=== PATIENT | female | born 1955 | race Caucasian/White ===

== ENCOUNTER → 2016-03-18 | Outpatient (CLI) | payer BC | LOC: MC.RAD 07:53 | DX: Z12.31 Encounter for screening mammogram for malignant neoplasm of breast (principal) ==

== ENCOUNTER → 2017-03-28 | Outpatient (CLI) | payer BC | LOC: MC.RAD 07:38 | DX: Z12.31 Encounter for screening mammogram for malignant neoplasm of breast (principal) ==

== ENCOUNTER → 2018-03-30 | Outpatient (CLI) | payer BC | LOC: MC.RAD 07:27 | DX: Z12.31 Encounter for screening mammogram for malignant neoplasm of breast (principal) ==

== ENCOUNTER 2018-05-04 11:07 | Emergency (ER) | payer BC ==
[~2018-05-04] VITALS: Ht 162.6 cm; Wt 61.8 kg
[2018-05-04 11:21] VITALS: TEMP 99
[2018-05-04] MEDS ORDERED: ASACOL HD800 MG PO ×2 (11:32)
[2018-05-04] MEDS ORDERED: LEVOXYL0.075 MG PO (11:32)
[2018-05-04 12:11] LABS: HEMOGLOBIN 15.6 g/dl (12.5-16.0); MEAN CELL VOLUME 98 fl (80.0-100.0); MEAN CORPUSCULAR HEMOGLOBIN 33 pg (27.0-31.0); MEAN CORPUSCULAR HGB CONC 34 g/dl (33.0-37.0); MEAN PLATELET VOLUME 10.3 fl (7.4-10.4); PLATELET COUNT 293 K/mm3 (130-400); RED BLOOD COUNT 4.71 M/mm3 (4.10-5.30); REDCELL DISTRIBUTION WIDTH-CV 13.3 % (11.5-14.5)
[2018-05-04 12:21] LABS: ALBUMIN 3.6 gm/dL (3.5-5.0); BILIRUBIN,TOTAL 0.4 mg/dL (0.0-1.0); C-REACTIVE PROTEIN 1.2 mg/dL (0.0-0.9); CALCIUM 8.8 mg/dL (8.4-10.2); CREATININE, serum 1.14 mg/dL (0.52-1.25); POTASSIUM 3.8 mmol/L (3.4-5.0); TOTAL PROTEIN 6.9 gm/dL (6.4-8.2)
[2018-05-04 12:52] LABS: ERYTHROCYTE SEDIMENTATION RATE 4 mm/hr (0-30)
[2018-05-04] MEDS ORDERED: LOMOTIL 0.025 M1 TAB PO (12:58)
[2018-05-04] MEDS ORDERED: ZOFRAN 4MG T4 MG/TAB PO (12:58)
[2018-05-04 13:04] LABS: BAND 20 % (0-10); LYMPHOCYTE 9 % (20.0-51.0); NEUTROPHILS 55 % (42.0-75.2); PLATELET ESTIMATE NORMAL (NORMAL)
[2018-05-04] MEDS ORDERED: EPA FISH OIL1 SGL PO (13:39)
[2018-05-04] MEDS ORDERED: CENTRUM SILVER1 CTB PO (13:39)
[2018-05-04] MEDS ORDERED: PRAVACHOL 20MG20 MG PO (13:39)
[2018-05-04] MEDS ORDERED: CITRACAL + D CA1 TAB (13:40)
[2018-05-04 14:00] VITALS: BP 138/73; PULSE 65
== END 2018-05-04 14:02 | disposition home or self-care (01) ==
LOC: COL.ER 11:07
PROVIDERS: Emergency Medicine
DX: R19.7 Diarrhea, unspecified (principal); E86.0 Dehydration
CPT/HCPCS: J1170; J2405; J7030

== ENCOUNTER 2018-05-13 10:51 | Emergency (ER) | payer BC ==
[~2018-05-13] VITALS: Ht 162.6 cm; Wt 56.8 kg
[~2018-05-13 10:51] MED LIST: ASACOL HD800 MG PO; CENTRUM SILVER1 CTB PO; CITRACAL + D CA1 TAB; EPA FISH OIL1 SGL PO; LEVOXYL0.075 MG PO; LOMOTIL 0.025 M1 TAB PO; PRAVACHOL 20MG20 MG PO; ZOFRAN 4MG T4 MG/TAB PO
[2018-05-13 10:58] VITALS: TEMP 98
[2018-05-13 11:44] LABS: BASO # 0.1 (0.0-0.2); BASO % 0.8 % (0.0-2.0); EOS % 0.2 % (0-4.0); GRAN # 12.1 (1.4-6.5); GRAN % 84.2 % (42.2-75.2); HEMATOCRIT 45.9 % (37.0-47.0); HEMOGLOBIN 15.4 g/dl (12.5-16.0); LYMPH # 1.3 (1.2-3.4); LYMPH % 8.9 % (20.0-51.0); MEAN CELL VOLUME 100 fl (80.0-100.0); MEAN CORPUSCULAR HEMOGLOBIN 34 pg (27.0-31.0); MEAN CORPUSCULAR HGB CONC 34 g/dl (33.0-37.0); MEAN PLATELET VOLUME 9.2 fl (7.4-10.4); MONO # 0.8 (0.1-0.6); MONO % 5.3 % (1.7-9.3); PLATELET COUNT 445 K/mm3 (130-400); RED BLOOD COUNT 4.59 M/mm3 (4.10-5.30); REDCELL DISTRIBUTION WIDTH-CV 13.4 % (11.5-14.5)
[2018-05-13 13:12] LABS: ALANINE AMINOTRANSFERASE 100 U/L (9-52); ALBUMIN 3.7 gm/dL (3.5-5.0); ALKALINE PHOSPHATASE 69 U/L (50-136); ANION GAP 9 mmol/L (7-16); AST,SGOT 57 U/L (15-37); BILIRUBIN,TOTAL 1.3 mg/dL (0.0-1.0); BLOOD UREA NITROGEN 26 mg/dL (7-17); CALCIUM 9.4 mg/dL (8.4-10.2); CARBON DIOXIDE 25 mmol/L (22-30); CHLORIDE 104 mmol/L (98-107); CREATININE, serum 0.96 mg/dL (0.52-1.25); GLUCOSE 93 mg/dL (74-106); POTASSIUM 3.8 mmol/L (3.4-5.0); SODIUM 138 mmol/L (137-145); TOTAL PROTEIN 6.9 gm/dL (6.4-8.2)
[2018-05-13 13:13] LABS: C-REACTIVE PROTEIN < 0.5 mg/dL (0.0-0.9)
[2018-05-13 13:18] LABS: COLLECTION METHOD CLEAN CATCH
[2018-05-13 13:36] LABS: AMORPHOUS CRYSTAL Present /uL; MUCOUS Present /lpf; PH 5 (5-8); SQUAMOUS EPITHELIAL 0-2 /hpf; URINE APPEARANCE Cloudy; URINE BACTERIA None Seen /hpf; URINE BILIRUBIN Negative (NEGATIVE); URINE BLOOD Negative (NEGATIVE); URINE COLOR Amber; URINE GLUCOSE Negative (NEGATIVE); URINE KETONE Negative (NEGATIVE); URINE LEUKOCYTE ESTERASE Negative (NEGATIVE); URINE NITRATE Negative (NEGATIVE); URINE PROTEIN(semi-quant) 1+ (NEGATIVE); URINE UROBILINOGEN Negative (NEGATIVE)
[2018-05-13 15:39] VITALS: BP 133/61; PULSE 82
== END 2018-05-13 15:43 | disposition home or self-care (01) ==
LOC: COL.ER 10:51
PROVIDERS: Nurse Practitioner
DX: K51.90 Ulcerative colitis, unspecified, without complications (principal)
CPT/HCPCS: J2405; J7030

== ENCOUNTER 2018-05-18 10:40 | Inpatient (IN) | payer BC ==
[~2018-05-18] VITALS: Ht 165.1 cm; Wt 58.1 kg
--- NOTE | 2018-05-18 11:34 | NUR ---
Patient arrived to room, dressed in gown over clothes, stating she was chilly. Did offer blanket and declined. Feels comfortable sitting up on couch. Denies pain, just has an undescriblable feeling in her abdomen. States has had diarrhea and has just returned from the restroom. No bloody stools noted since symptoms initially started approximately 3 weeks ago. Denies abdominal pain to touch. is at bedside, call light is within reach.
[2018-05-18] MEDS ORDERED: MASON NATURAL2000 IU PO (11:55)
[2018-05-18] MEDS ORDERED: PREDNISONE10 MG PO (11:57)
[2018-05-18 12:19] VITALS: BP 114/64; PULSE 72; TEMP 98.2
[2018-05-18 13:19] LABS: HEMATOCRIT 41.2 % (37.0-47.0); HEMOGLOBIN 13.6 g/dl (12.5-16.0); MEAN CELL VOLUME 99 fl (80.0-100.0); MEAN CORPUSCULAR HEMOGLOBIN 33 pg (27.0-31.0); MEAN CORPUSCULAR HGB CONC 33 g/dl (33.0-37.0); PLATELET COUNT 343 K/mm3 (130-400); RED BLOOD COUNT 4.16 M/mm3 (4.10-5.30); REDCELL DISTRIBUTION WIDTH-CV 13.5 % (11.5-14.5)
[2018-05-18 13:29] LABS: ALBUMIN 3.4 gm/dL (3.5-5.0); BILIRUBIN,TOTAL 0.9 mg/dL (0.0-1.0); CALCIUM 8.7 mg/dL (8.4-10.2); CREATININE, serum 0.99 mg/dL (0.52-1.25); POTASSIUM 3.9 mmol/L (3.4-5.0); TOTAL PROTEIN 6.1 gm/dL (6.4-8.2)
[2018-05-18 13:51] LABS: ERYTHROCYTE SEDIMENTATION RATE 1 mm/hr (0-30)
[2018-05-18 13:55] LABS: BAND 19 % (0-10); LYMPHOCYTE 2 % (20.0-51.0); NEUTROPHILS 79 % (42.0-75.2); PLATELET ESTIMATE NORMAL (NORMAL); TOXIC GRANULATION PRESENT
[2018-05-18 15:28] VITALS: BP 118/64; PULSE 77; TEMP 98.4
--- NOTE | 2018-05-18 18:11 | NUR ---
Patient is resting in bed, is at bedside. Denies pain but states she definitely does not feel the best. Did ask for ice chips, provided to patient. No other needs verbalized, call light is within reach.
[2018-05-18 20:38] VITALS: BP 102/60; PULSE 72; TEMP 98.4
[2018-05-18 21:21] LABS: COLLECTION METHOD CLEAN CATCH
[2018-05-18 21:29] LABS: AMORPHOUS CRYSTAL Present /uL; MUCOUS Present /lpf; PH 5 (5-8); SQUAMOUS EPITHELIAL None Seen /hpf; URINE APPEARANCE Turbid; URINE BACTERIA Rare /hpf; URINE BILIRUBIN Negative (NEGATIVE); URINE BLOOD Negative (NEGATIVE); URINE COLOR Yellow; URINE GLUCOSE Negative (NEGATIVE); URINE KETONE 1+ (NEGATIVE); URINE LEUKOCYTE ESTERASE Negative (NEGATIVE); URINE NITRATE Negative (NEGATIVE); URINE PROTEIN(semi-quant) Negative (NEGATIVE); URINE RBC 0-2 /hpf; URINE UROBILINOGEN Negative (NEGATIVE)
[2018-05-18 23:35] VITALS: BP 111/60; PULSE 63; TEMP 98.8
[2018-05-19 03:45] VITALS: BP 98/58; PULSE 63; TEMP 98.5
--- NOTE | 2018-05-19 04:16 | NUR ---
PT HAD UNEVENTFUL NOC. PT REMAINS HAVING C/O GI UPSET AND LOOSE STOOLS. SCHEDULED MEDS GIVEN, NO NEED FOR PRN MEDS VOICED OVER NIGHT. PT DID INQUIRE ABOUT 6-MP MED, NOTIFIED PT THAT AT THIS TIME IT HASNT BEEN STARTED. NO OTHER QUESTIONS OR CONSERNS VOICED OVERNIGHT.
[2018-05-19 07:57] LABS: CALCIUM 7.4 mg/dL (8.4-10.2); CREATININE, serum 0.73 mg/dL (0.52-1.25); MAGNESIUM 2.1 mg/dL (1.6-2.3)
--- NOTE | 2018-05-19 08:30 | NUR ---
Checked in on patient, she is observed up in room, coming out of restroom. States she is feeling some improvement and would like to try a clear liquid diet. Did offer jello and tolerated it well. Received order for clear liquid diet and tray ordered for patient. Call light is within reach.
--- NOTE | 2018-05-19 11:09 | NUR ---
First visit from the health service worker. No needs right now.
--- NOTE | 2018-05-19 13:26 | NUR ---
MAGDY met with the patient to discuss discharge plan. The patient lives in [place] with her , Waylon. She reports independence with ADLs and dose not use any DME. The patient's PCP is Dr. Aubrey Vazquez and she states that after he retires at the end of this month, she will be switching to Dr. Villanueva. She receives her medications at the [facility] and she reports no difficulties obtaining her meds. The patient's DPOA-HC is in EMR. The patient plans to return home with her upon discharge. No additional needs at this time.
[2018-05-19 16:07] VITALS: BP 135/61; PULSE 63; TEMP 98.7
--- NOTE | 2018-05-19 17:34 | NUR ---
Patient sitting up in bed, did go for walk in hallway with . Tolerated well. Stated will maybe order something for supper but isnt sure yet. Did not have any issue with mashed potatoes at lunch. Deneis pain. Call light is within reach.
--- NOTE | 2018-05-19 19:32 | NUR ---
Patient sitting up in bed. Assessment completed, slightly rounded abdomen, reports pain of 2-3/10. Reports some mild nausea, would like zofran if possible. IV site shows no redness/edema, NS infusing at 100 mls/hr. Alert and oriented x4.
[2018-05-19 19:51] VITALS: BP 117/66; PULSE 66; TEMP 98.4
[2018-05-20] VITALS (7 sets, daily range): BP systolic 19–120; BP diastolic 57–64; PULSE 56–65; TEMP 97.9–98.9
--- NOTE | 2018-05-20 05:24 | NUR ---
Pt slept on/off last night. Reports minor pain, rating around 3. No pain medications given. Some mild nausea at beginning of shift, given zofran, nausea was relieved. NS infusing at 100 mls/hr. No further needs at this time.
[2018-05-20 06:41] LABS: ALBUMIN 2.5 gm/dL (3.5-5.0); BILIRUBIN,TOTAL 0.4 mg/dL (0.0-1.0); CALCIUM 7.5 mg/dL (8.4-10.2); CREATININE, serum 0.68 mg/dL (0.52-1.25); MAGNESIUM 2.3 mg/dL (1.6-2.3); POTASSIUM 3.9 mmol/L (3.4-5.0); TOTAL PROTEIN 4.8 gm/dL (6.4-8.2)
--- NOTE | 2018-05-20 07:16 | NUR ---
Report given to LARS Khan> Patient resting in bed. No needs at this time.
--- NOTE | 2018-05-20 09:00 | NUR ---
Pt is A+Ox3, pleasant, denies pain and SOB, denies vomiting for 2 days but asked for zofran just to avoid nausea after eating. States she still has loose stools but no blood. Abodmen is soft, nondistended, she states she feels much improved. IV free of redness, swelling. Physical assessment completed. No furtehr needs, call light in reach
--- NOTE | 2018-05-20 16:42 | NUR ---
This RN ambulated pt around third floor, she had steady gate with no SOB or dizziness, returned to bed, call jennyfer vila
--- NOTE | 2018-05-20 18:29 | NUR ---
tHROUGH SHIFT pt vitals remained stable, no nausea/vomiting, no diarrhea. Pt walked halls today, fluids infusing into IV site free of redness, swelling. Call light in reach, no furtehr needs
--- NOTE | 2018-05-20 18:39 | NUR ---
Gigi Becerril Rn
--- NOTE | 2018-05-20 19:05 | NUR ---
Patient resting in bed watching tv. Assessment completed, lungs clear, bowel sounds active, denies pain, denies nausea. Requesting enema to be given at 2200 this evening. Ambulatory, independent within the room. NS infusing at 60 mls/hr into right forearm. No needs at this time.
--- NOTE | 2018-05-20 22:13 | NUR ---
Patient received mesalamine enema, tolerated well. Now resting in bed, states she is going to try and sleep now
[2018-05-21 04:55] VITALS: BP 110/63; PULSE 55; TEMP 98
--- NOTE | 2018-05-21 05:02 | NUR ---
Patient slept for most of the shift. IVF infusing at 60 mls/hr into right forearm. No c/o pain/nausea. Independent in room. No further needs at this time.
--- NOTE | 2018-05-21 07:00 | NUR ---
Report given to LARS Orosco. Patient sitting up in bed. No needs at this time.
[2018-05-21 07:58] VITALS: BP 107/57; PULSE 66; TEMP 97.8
--- NOTE | 2018-05-21 09:42 | NUR ---
Assessment complete.patient awake,a/ox3.denies pain or discomfort at this time.LSCTA.breathing even and unlabored.denies nausea vomitting or diarrhea.IVF infusing.patient tolerating food well.denies any needs at this time.will continue to monitor.call light in reach
[2018-05-21] MEDS ORDERED: ZOFRAN ODT4 MG PO (09:47)
[2018-05-21] MEDS ORDERED: PROTONIX 40MG T40 MG PO (09:48)
[2018-05-21] MEDS ORDERED: ROWASA ENEMA60 ML RC (09:49)
[2018-05-21] MEDS ORDERED: LIALDA 1.2 GM1.2 GM PO (09:49)
[2018-05-21] MEDS ORDERED: PREDNISONE10 MG PO (09:55)
[2018-05-21] MEDS ORDERED: HUMIRA SQ (09:55)
[2018-05-21] MEDS ORDERED: PURINETHOL 50MG50 MG PO (09:58)
--- NOTE | 2018-05-21 11:18 | NUR ---
Pt resting in bed at this time.denies any needs. Discharge instructions reviewed.Humira given to pt by pharmacy to take home.education provided on med and pt voiced understanding.mesalamine enema sent home with patient.Iv discontinued.all questions answered.paperwork signed. staff to escort patient out.
== END 2018-05-21 12:02 | disposition home or self-care (01) | DRG 387 ==
LOC: MEDICAL 10:40
PROVIDERS: Physician Assistant; ADMIT Internal Medicine
DX: K51.018 Ulcerative (chronic) pancolitis with other complication (principal); E78.5 Hyperlipidemia, unspecified; E03.9 Hypothyroidism, unspecified; E80.4 Gilbert syndrome; K76.0 Fatty (change of) liver, not elsewhere classified
CPT/HCPCS: 99222-AI; 99232-AI; 99239; J1650; J2405; J2930; J7030

== ENCOUNTER → 2020-05-15 | Outpatient (CLI) | payer BC ==
[~2020-05-15] MED LIST changes: +HUMIRA SQ; +LIALDA 1.2 GM1.2 GM PO; +MASON NATURAL2000 IU PO; +PREDNISONE10 MG PO; +PROTONIX 40MG T40 MG PO; +PURINETHOL 50MG50 MG PO; +ROWASA ENEMA60 ML RC; +ZOFRAN ODT4 MG PO
== END ==
LOC: ZCOL.LAB 12:16
DX: R07.9 Chest pain, unspecified (principal)

== ENCOUNTER → 2020-10-02 | Outpatient (CLI) | payer BC | LOC: MC.RAD 08:25 | DX: Z12.31 Encounter for screening mammogram for malignant neoplasm of breast (principal) ==

== ENCOUNTER → 2021-10-11 | Outpatient (CLI) | payer BC | LOC: MC.RAD 08:25 | DX: Z12.31 Encounter for screening mammogram for malignant neoplasm of breast (principal) ==

== ENCOUNTER 2023-04-22 10:56 | Outpatient (CLI) | payer MEDICARE ==
[~2023-04-22] VITALS: Ht 162.6 cm; Wt 65.2 kg
[2023-04-22 11:29] LABS: BASO % 0.6 % (0.0-2.0); EOS # 0.2 K/mm3 (0.0-0.7); EOS % 3.2 % (0.0-4.0); GRAN # 4.4 K/mm3 (1.4-6.5); GRAN % 65.7 % (42.2-75.2); HEMATOCRIT 42.4 % (37.0-47.0); HEMOGLOBIN 13.7 g/dl (12.5-16.0); MEAN CELL VOLUME 101 fl (80.0-100.0); MEAN CORPUSCULAR HEMOGLOBIN 33 pg (27-31); MEAN CORPUSCULAR HGB CONC 32 g/dl (33.0-37.0); PLATELET COUNT 244 K/mm3 (130-400); REDCELL DISTRIBUTION WIDTH-CV 12.7 % (11.5-14.5)
[2023-04-22 11:45] LABS: ALBUMIN 3.7 gm/dL (3.4-4.8); CALCIUM 10.2 mg/dL (8.4-10.2); CREATININE, serum 0.8 mg/dL (0.57-1.11); POTASSIUM 4.1 mmol/L (3.5-4.5); TOTAL PROTEIN 7.8 gm/dL (6.2-8.1)
[2023-04-22 11:54] LABS: BILIRUBIN,TOTAL 0.6 mg/dL (0.2-1.2)
[2023-04-22] MEDS ORDERED: diphenhydrAMINE 50 MG/ML 1 ML VIAL IV ONE (12:15)
[2023-04-22] MEDS ORDERED: Acetaminophen 500 MG TAB PO ONE (12:15)
[2023-04-22] MEDS ORDERED: methylPREDNISolone Sod Succ 40 MG/ML VIAL IV ONE (12:15)
[2023-04-22 12:45] VITALS: BP 135/82; PULSE 61; TEMP 98.2
[2023-04-22] MEDS ORDERED: Vedolizumab 300 MG in NS 250 ML IV ONE (12:45)
== END 2023-04-22 16:10 ==
LOC: EUO 10:56
PROVIDERS: Internal Medicine Gastroenterology
DX: M81.0 Age-related osteoporosis without current pathological fracture (principal)
CPT/HCPCS: J3380; J7050

== ENCOUNTER 2023-05-07 09:53 | Outpatient (CLI) | payer MEDICARE ==
[~2023-05-07] VITALS: Ht 162.6 cm; Wt 65.0 kg
[2023-05-07 10:15] VITALS: BP 119/77; PULSE 66; TEMP 98.6
[2023-05-07 10:25] LABS: BASO % 0.7 % (0.0-2.0); EOS # 0.3 K/mm3 (0.0-0.7); GRAN # 3.6 K/mm3 (1.4-6.5); GRAN % 60.1 % (42.2-75.2); HEMATOCRIT 42.4 % (37.0-47.0); HEMOGLOBIN 14.5 g/dl (12.5-16.0); LYMPH % 16.9 % (20.0-51.0); MEAN CELL VOLUME 97 fl (80.0-100.0); MEAN CORPUSCULAR HEMOGLOBIN 33 pg (27-31); MEAN CORPUSCULAR HGB CONC 34 g/dl (33.0-37.0); MONO % 17.1 % (1.7-9.3); PLATELET COUNT 230 K/mm3 (130-400); RED BLOOD COUNT 4.37 M/mm3 (4.10-5.30); REDCELL DISTRIBUTION WIDTH-CV 13.3 % (11.5-14.5)
[2023-05-07] MEDS ORDERED: CRESTOR 10MG10 MG PO (10:25)
[2023-05-07] MEDS ORDERED: PRINIVIL40 MG PO (10:25)
[2023-05-07] MEDS ORDERED: NORVASC 5MG5 MG/TAB PO (10:26)
[2023-05-07] MEDS ORDERED: Acetaminophen 500 MG TAB PO ONE (10:45)
[2023-05-07] MEDS ORDERED: methylPREDNISolone Sod Succ 125 MG/2 ML VIAL IV ONE (10:45)
[2023-05-07] MEDS ORDERED: diphenhydrAMINE 50 MG/ML 1 ML VIAL IV ONE (10:45)
[2023-05-07 10:48] LABS: ALBUMIN 3.9 gm/dL (3.4-4.8); BILIRUBIN,TOTAL 0.6 mg/dL (0.2-1.2); CALCIUM 9.4 mg/dL (8.4-10.2); CREATININE, serum 0.91 mg/dL (0.57-1.11); POTASSIUM 3.3 mmol/L (3.5-4.5); TOTAL PROTEIN 7.8 gm/dL (6.2-8.1)
[2023-05-07] MEDS ORDERED: Vedolizumab 300 MG in NS 250 ML IV SCH (11:00)
--- NOTE | 2023-05-07 11:45 | NUR ---
pt tolerated infusion well and iv was discontinued. vs remained within normal limits and pt ambulated independently to [facility] upon discharge.
== END 2023-05-07 11:47 | disposition home or self-care (01) ==
LOC: EUO 09:53
PROVIDERS: Internal Medicine Gastroenterology
DX: M81.0 Age-related osteoporosis without current pathological fracture (principal)
CPT/HCPCS: J3380; J7050

== ENCOUNTER 2023-12-06 11:12 | Inpatient (IN) | payer MEDICARE ==
[~2023-12-06] VITALS: Ht 152.4 cm; Wt 64.0 kg
[~2023-12-06 11:12] MED LIST changes: +CANASA 1000MG1000 MG RC; +CRESTOR 10MG10 MG PO; +ENTYVIO IV; +EOHILIA2 MG/10 ML RC; -LEVOXYL0.075 MG PO; +NORVASC 5MG5 MG/TAB PO; +PRINIVIL40 MG PO; +PROLIA60 MG/ML SQ; +RINVOQ30 MG PO; +SYNTHROID0.05 MG/TA PO
[2023-12-06] MEDS ORDERED: LR 1,000 ML IV ONE (14:30)
[2023-12-06 14:37] LABS: HEMATOCRIT 37.9 % (37.0-47.0); HEMOGLOBIN 12.4 g/dl (12.5-16.0); MEAN CELL VOLUME 101 fl (80.0-100.0); MEAN CORPUSCULAR HEMOGLOBIN 33 pg (27-31); MEAN CORPUSCULAR HGB CONC 33 g/dl (33.0-37.0); MEAN PLATELET VOLUME 9.7 fl (7.4-10.4); PLATELET COUNT 285 K/mm3 (130-400); RED BLOOD COUNT 3.75 M/mm3 (4.10-5.30); REDCELL DISTRIBUTION WIDTH-CV 14.1 % (11.5-14.5)
[2023-12-06 14:55] LABS: ALBUMIN 3.5 g/dL (3.4-4.8); BILIRUBIN,TOTAL 0.8 mg/dL (0.2-1.2); C-REACTIVE PROTEIN 10.8 mg/dL (0.00-0.50); CALCIUM 9.1 mg/dL (8.4-10.2); CREATININE, serum 1.05 mg/dL (0.57-1.11); POTASSIUM 4.2 mEq/L (3.5-4.5); TOTAL PROTEIN 7.9 g/dl (6.2-8.1)
[2023-12-06] MEDS ORDERED: fentaNYL 50 MCG/ML 2 ML VIAL IV ONE (15:00)
[2023-12-06 15:14] LABS: LYMPHOCYTE 3 % (20.0-51.0); NEUTROPHILS 92 % (42.0-75.2); PLATELET ESTIMATE NORMAL (NORMAL)
[2023-12-06] MEDS ORDERED: Iohexol 300 - 100 ML VIAL IV ONE (15:42)
[2023-12-06] MEDS ORDERED: NS 100 ML IV SCH (15:43)
[2023-12-06 16:01] LABS: COLLECTION METHOD CLEAN CATCH
[2023-12-06 16:18] LABS: PH 6.5 (5.0-8.5); URINE APPEARANCE CLEAR (CLEAR/HAZY); URINE BLOOD TRACE (NEGATIVE); URINE COLOR YELLOW (YELLOW); URINE GLUCOSE NEGATIVE (NEGATIVE); URINE KETONE TRACE (NEGATIVE); URINE NITRATE NEGATIVE (NEGATIVE); URINE PROTEIN(semi-quant) TRACE (NEGATIVE); URINE UROBILINOGEN 0.2 E.U/dL (0.2-1.0)
[2023-12-06] MEDS ORDERED: Acetaminophen 500 MG TAB PO ONE (17:30)
[2023-12-06] MEDS ORDERED: amLODIPine 5 MG TAB PO SCH (18:00)
[2023-12-06 18:45] VITALS: BP 118/65; PULSE 88; TEMP 100.8
[2023-12-06 19:25] VITALS: BP 97/57; PULSE 84; TEMP 98.8
[2023-12-06 19:59] VITALS: BP 97/57
[2023-12-06 20:00] VITALS: BP_SYST 97
[2023-12-06] MEDS ORDERED: Acetaminophen 500 MG TAB PO PRN (22:00)
[2023-12-06] MEDS ORDERED: LR 1,000 ML IV SCH (22:00)
[2023-12-06] MEDS ORDERED: Ondansetron 4 MG/2 ML VIAL IV PRN (22:00)
[2023-12-06] MEDS ORDERED: RINVOQ 30 MG PO SCH (22:15)
[2023-12-06 23:13] VITALS: BP 95/54; PULSE 73; TEMP 98.1
[2023-12-06 23:46] VITALS: BP 95/54
[2023-12-07] VITALS (12 sets, daily range): BP systolic 95–137; BP diastolic 57–79; PULSE 66–110; TEMP 97.8–102.6
--- NOTE | 2023-12-07 05:55 | NUR ---
tylenol given for temp of 100.1 this shift, IVF infusing per PIV, NPO with Ice chips, up independently in room to bathroom. no N/V/diarrhea reported since admission.
[2023-12-07 06:34] LABS: MEAN CELL VOLUME 97 fl (80.0-100.0); MEAN CORPUSCULAR HEMOGLOBIN 33 pg (27-31); MEAN CORPUSCULAR HGB CONC 34 g/dl (33.0-37.0); MEAN PLATELET VOLUME 10.2 fl (7.4-10.4); PLATELET COUNT 254 K/mm3 (130-400); RED BLOOD COUNT 3.31 M/mm3 (4.10-5.30); REDCELL DISTRIBUTION WIDTH-CV 13.8 % (11.5-14.5)
[2023-12-07 06:43] LABS: HEMATOCRIT 32.1 % (37.0-47.0)
[2023-12-07 07:00] LABS: CALCIUM 8.5 mg/dL (8.4-10.2); CREATININE, serum 1.11 mg/dL (0.57-1.11); POTASSIUM 3.8 mEq/L (3.5-4.5)
[2023-12-07 07:46] LABS: BAND 5 % (0-10); LYMPHOCYTE 8 % (20.0-51.0); NEUTROPHILS 81 % (42.0-75.2)
[2023-12-07 07:47] LABS: PLATELET ESTIMATE NORMAL (NORMAL)
[2023-12-07] MEDS ORDERED: Pantoprazole 40 MG in NS 10 ML IV SCH (09:00)
[2023-12-07] MEDS ORDERED: Lisinopril 20 MG TAB PO SCH (09:00)
--- NOTE | 2023-12-07 09:26 | NUR ---
PATIENT ALERT AND ORIENTED X4. VSS. PATIENT HERE FOR DIVERTICULITIS. PATIENT DENIES ANY PAIN AT THIS TIME. IV TO RIGHT AC WITH LR INFUSING AT 100ML/HOUR. AM MEDS ADMINISTERED. NO FURTHER NEEDS. CALL LIGHT IN REACH.
--- NOTE | 2023-12-07 10:54 | NUR ---
cathead worker met with patient at bedside to discuss discharge planning. Patient confirmed that she lives in [place] with her Waylon (h# [phone], c# [phone]). Patient stated that her primary care physican is Dr. Valdez and her [facility] is [facility]. Patient denies using any DMEs or needing assistance with any ADLs. Patient also denies needing any assistance with transportation to or from appointments or with accessing or affording medication. Patient denies any additional concerns regarding discharge at this time. Plan: D/C Home
[2023-12-07] MEDS ORDERED: metroNIDAZOLE 100 ML IV SCH (11:15)
[2023-12-07] MEDS ORDERED: oxyCODONE 5 MG TAB PO PRN (12:15)
[2023-12-07] MEDS ORDERED: Morphine 4 MG/ML VIAL IV PRN (12:15)
[2023-12-07] MEDS ORDERED: amLODIPine 5 MG TAB PO SCH (18:00)
[2023-12-07] MEDS ORDERED: Patient's Own Medication Item PO SCH ×2 (21:00)
[2023-12-08] VITALS (12 sets, daily range): BP systolic 95–129; BP diastolic 58–77; PULSE 66–85; TEMP 98.2–100.2
[2023-12-08 06:12] LABS: HEMOGLOBIN 10.3 g/dl (12.5-16.0); MEAN CELL VOLUME 98 fl (80.0-100.0); MEAN CORPUSCULAR HEMOGLOBIN 33 pg (27-31); MEAN CORPUSCULAR HGB CONC 34 g/dl (33.0-37.0); MEAN PLATELET VOLUME 9.8 fl (7.4-10.4); PLATELET COUNT 231 K/mm3 (130-400); RED BLOOD COUNT 3.15 M/mm3 (4.10-5.30); REDCELL DISTRIBUTION WIDTH-CV 13.9 % (11.5-14.5)
[2023-12-08 06:19] LABS: HEMATOCRIT 30.7 % (37.0-47.0)
[2023-12-08 06:32] LABS: CALCIUM 8.6 mg/dL (8.4-10.2); CREATININE, serum 0.87 mg/dL (0.57-1.11); POTASSIUM 3.6 mEq/L (3.5-4.5)
[2023-12-08 07:03] LABS: LYMPHOCYTE 2 % (20.0-51.0); NEUTROPHILS 91 % (42.0-75.2)
[2023-12-08] MEDS ORDERED: Calcium Citrate/Vit D3 200 mg-6.25 mcg(250 Units) TAB PO SCH (09:00)
[2023-12-08] MEDS ORDERED: Cholecalciferol (Vit D3) 25 MCG (1,000 Units) TAB PO SCH (09:00)
--- NOTE | 2023-12-08 09:58 | NUR ---
Initial visit; Patient thanked Slot Operations Director for looking in on her and introducing herself . Slot Operations Director offered God's blessings and will keep Chayo in her prayers.
--- NOTE | 2023-12-08 19:50 | NUR ---
Assessment complete. A&Ox3. Denies pain/nausea/shortness of breath. VS stable-current temp 100.2-tylenol given per dr order. +flatus. No BM. Tolerated full liquid diet. Plan of care discussed for this shift to include meds/pain control/calling for questions/concerns. Verbalizes understanding. Call light in reach. Will monitor.
[2023-12-09] VITALS (12 sets, daily range): BP systolic 111–138; BP diastolic 63–74; PULSE 61–77; TEMP 97.7–99.8
--- NOTE | 2023-12-09 00:30 | NUR ---
Patient resting eyes closed. NO s/s of pain or discomfort noted. WIll monitor.
--- NOTE | 2023-12-09 06:00 | NUR ---
Patient had an uneventful night. Denied nausea/pain/shortness of breath. VS stable. Tolerating diet. Left FA IV with LR@75ml/hr infusing without difficulty. Max temp 100.2. Denies current needs. Call [facility] vila. Will monitor.
[2023-12-09 06:30] LABS: BASO % 0.3 % (0.0-2.0); EOS # 0.2 K/mm3 (0.0-0.7); EOS % 1.8 % (0.0-4.0); GRAN # 10.3 K/mm3 (1.4-6.5); GRAN % 86.3 % (42.2-75.2); HEMOGLOBIN 10.1 g/dl (12.5-16.0); LYMPH # 0.4 K/mm3 (1.2-3.4); LYMPH % 3.3 % (20.0-51.0); MEAN CELL VOLUME 96 fl (80.0-100.0); MEAN CORPUSCULAR HEMOGLOBIN 33 pg (27-31); MEAN CORPUSCULAR HGB CONC 34 g/dl (33.0-37.0); MEAN PLATELET VOLUME 10.5 fl (7.4-10.4); MONO # 0.9 K/mm3 (0.1-0.6); MONO % 7.8 % (1.7-9.3); PLATELET COUNT 264 K/mm3 (130-400); RED BLOOD COUNT 3.09 M/mm3 (4.10-5.30); REDCELL DISTRIBUTION WIDTH-CV 13.7 % (11.5-14.5)
[2023-12-09 06:37] LABS: HEMATOCRIT 29.6 % (37.0-47.0)
[2023-12-09 06:46] LABS: C-REACTIVE PROTEIN 26.46 mg/dL (0.00-0.50); CALCIUM 8.7 mg/dL (8.4-10.2); CREATININE, serum 0.83 mg/dL (0.57-1.11); POTASSIUM 3.5 mEq/L (3.5-4.5)
--- NOTE | 2023-12-09 08:52 | NUR ---
PT RESTING IN BED, STUDENT NURSE ASSISTED WITH ORDERING BREAKFAST. PT DENIES NEEDS. IV MEDS RUNNING ORDERED. AM MEDS GIVEN ORDERED.
--- NOTE | 2023-12-09 20:39 | NUR ---
PATIENT IS RESTING IN BED WATCHING TV. DENIES PAIN OR NAUSEA AT THIS TIME. HAS BEEN WALKING IN ROOM TO GET EXERCISE, GAIT STEADY. CALL LIGHT WITHIN REACH. BED IS LOCKED AND IN LOW POSITION.
[2023-12-10] VITALS (9 sets, daily range): BP systolic 132–149; BP diastolic 74–98; PULSE 57–90; TEMP 98.1–99.3
[2023-12-10] MEDS ORDERED: Amoxicillin/Clavulanate K+ 875/125 MG TAB PO SCH (08:00)
[2023-12-10] MEDS ORDERED: metroNIDAZOLE 250 MG TAB PO SCH (09:00)
[2023-12-10 09:33] LABS: BASO % 0.4 % (0.0-2.0); EOS # 0.2 K/mm3 (0.0-0.7); EOS % 2.1 % (0.0-4.0); GRAN % 86.3 % (42.2-75.2); HEMOGLOBIN 10.7 g/dl (12.5-16.0); LYMPH # 0.4 K/mm3 (1.2-3.4); LYMPH % 3.6 % (20.0-51.0); MEAN CELL VOLUME 95 fl (80.0-100.0); MEAN CORPUSCULAR HEMOGLOBIN 32 pg (27-31); MEAN CORPUSCULAR HGB CONC 34 g/dl (33.0-37.0); MEAN PLATELET VOLUME 10.2 fl (7.4-10.4); MONO # 0.7 K/mm3 (0.1-0.6); MONO % 6.9 % (1.7-9.3); PLATELET COUNT 322 K/mm3 (130-400); RED BLOOD COUNT 3.32 M/mm3 (4.10-5.30); REDCELL DISTRIBUTION WIDTH-CV 13.7 % (11.5-14.5)
[2023-12-10 09:38] LABS: HEMATOCRIT 31.4 % (37.0-47.0)
[2023-12-10 09:49] LABS: CREATININE, serum 0.86 mg/dL (0.57-1.11)
--- NOTE | 2023-12-10 11:10 | NUR ---
PATIENT ALERT AND ORIENTED X4. VSS. PATIENT HERE FOR DIVERTICULITIS WITH MICROPERF. PATIENT DENIES ANY PAIN THIS AM. AM MEDS ADMINISTERED. IV TO RIGHT AC INT AND FLUSHES WELL. PATIENT DENIES ANY FURTHER NEEDS. CALL LIGHT IN REACH.
--- NOTE | 2023-12-10 13:20 | NUR ---
MAGDY and MAGDY Johns met with patient to review Medicare IM form. Patient voiced understanding and agreement with discharge. Patient signed form, original on chart and copy to patient. Patient reports no needs for discharge. Discharge plan: Home
[2023-12-10] MEDS ORDERED: AMOXICILLIN 8751 TAB PO (15:18)
[2023-12-10] MEDS ORDERED: FLAGYL500 MG PO (15:19)
--- NOTE | 2023-12-10 16:33 | NUR ---
DISCHARGE INSTRUCTIONS PROVIDED. PATIENT EDUCATION GIVEN. IV DC'D. FOLLOW UP APPOINTMENTS DISCUSSED. MEDICATIONS REVIEWED. PATIENT DENIES ANY QUESTIONS OR CONCERNS. PATIENT ESCORTED OUT VIA WHEELCHAIR.
== END 2023-12-10 16:34 | disposition home or self-care (01) | DRG 392 ==
LOC: COL.ER 11:12 → SURG 17:58
PROVIDERS: Emergency Medicine; Physician Assistant; ADMIT Internal Medicine
DX: K57.80 Diverticulitis of intestine, part unspecified, with perforation and abscess without bleeding (principal); K51.90 Ulcerative colitis, unspecified, without complications; A32.9 Listeriosis, unspecified; I10 Essential (primary) hypertension; E78.00 Pure hypercholesterolemia, unspecified; E03.9 Hypothyroidism, unspecified; Z79.890 Hormone replacement therapy; Z88.8 Allergy status to other drugs, medicaments and biological substances
CPT/HCPCS: J1836; J2470; J2543; J3010; J3480; J7120; Q9967